=== PATIENT | female | born 2000 | race Caucasian/White ===

== ENCOUNTER 2024-02-07 20:51 | Outpatient (CLI) | payer OTHER | END 2024-02-07 23:59 | disposition left against medical advice (07) | LOC: EMS 20:51 | DX: Z04.1 Encounter for examination and observation following transport accident (principal) ==

== ENCOUNTER 2024-02-08 10:22 | Emergency (ER) | payer OTHER ==
[2024-02-08 10:40] VITALS: O2SAT 100
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
[2024-02-08 11:57] VITALS: BP 132/76
== END 2024-02-08 11:54 | disposition home or self-care (01) ==
LOC: ED 10:22
DX: S06.0X0A Concussion without loss of consciousness, initial encounter (principal); V49.9XXA Car occupant (driver) (passenger) injured in unspecified traffic accident, initial encounter; F17.200 Nicotine dependence, unspecified, uncomplicated
CPT/HCPCS: 99283; 99284